=== PATIENT | female | born 1950 | race Caucasian/White ===

== ENCOUNTER 2017-04-09 07:44 | Day surgery (SDC) | payer MEDICARE, OTHER ==
[~2017-04-09] VITALS: Ht 172.7 cm; Wt 78.0 kg
[~2017-04-09 07:44] MED LIST: 0.9% Sodium Chloride 1,000 ML IV SCH; NO MEDS; Sodium Chloride LOK Flush 10 mL Syringe IV PRN; fentaNYL-PF 50 mCg/mL 2 mL Inj IVPUSH PRN
[2017-04-09 08:15] VITALS: BP 111/73; PULSE 63; RESP 16; O2SAT 99
[2017-04-09 09:31] VITALS: BP 92/56; PULSE 48; RESP 16; O2SAT 96
--- NOTE | 2017-04-09 09:34 | PCM.ENDCOL ---
Colonoscopy Date of Service: April 09, 2017 Physician Juan José Villarreal MD Pre Procedure Diagnosis: Screening Post Procedure Dx & Findings: Polyp Diverticula hemorrhoids Procedure Colonoscopy PROCEDURE IN DETAIL: Prep adequate Withdrawal time 10 minutes After unremarkable rectal examination the Olympus video colonoscope was inserted patient's anal canal and was advanced to cecum. Landmarks were identified including the ileocecal valve and appendiceal orifice. Scope was withdrawn systematically. Visualized colonic mucosa showed healthy shiny mucosa with normal healthy-appearing vasculature. In the cecum, there was a 2 mm polyp which was removed completely using cold snare. Starting in the distal descending colon, multiple medium-size diverticula noted into the distal sigmoid colon. In the rectum retroflexion was done which showed hemorrhoids. Anal canal was inspected carefully on the way out and hemorrhoids noted. Impression Polyp 1 status post complete removal Diverticula Hemorrhoids Recommendation Repeat colonoscopy 5 years Diverticular diet Presedation Assessment Risks and Benefits Informed consent was obtained from the patient after all risks and benefits including but not limited to drug reaction, infection, pain, bleeding, perforation, as well as alternatives were discussed. Patient monitoring Continuous pulse oximetry, cardiac monitoring, blood pressure monitoring, IV access, and oxygen at 2L per nasal cannula. Periprocedural Fentanyl: Fentanyl 125mcg Incrementally Midazolam: Midazolam 6mg Incrementally Complications There were no periprocedural complications identified. Post Procedure Plan Post Procedure Recommendations 1. Restrict activities today. 2. Resume normal activities in the morning. 3. Resume medications. 4. Patient informed of normal post procedure side effects as bloating, drowsiness, blood streaking in the stool. 5. average risk CRCS. If colon polyps come back as: -Hyperplastic- can repeat colonoscopy in 10 years -Tubular adenoma- repeat colonoscopy in 5 years -Tubulovillous/villous adenoma- repeat colonoscopy in 3 years -If any dysplasia- return to clinic as soon as possible 6. Please don't hesitate to call me with any questions. Juan José Villarreal MD April 09, 2017 09:34
[2017-04-09 09:41] VITALS: BP 96/54; PULSE 47; RESP 14; O2SAT 96
[2017-04-09 09:51] VITALS: BP 86/57; PULSE 40; RESP 16; O2SAT 100
[2017-04-09 09:57] VITALS: BP 93/65; PULSE 43; RESP 16; O2SAT 100
--- NOTE | 2017-04-10 10:42 | PATH ---
SURGICAL PATHOLOGY Attending Physician:Juan José Villarreal M.D. CASE STATUS: Signed Out PATIENT NAME: VIVIANA CASTILLO PID: [id number] : 1950 DATE COLLECTED:04/09/2017 17:46 SPECIMEN: Colon, Biopsy CLINICAL HISTORY: 1. CECAL POLYP FINAL DIAGNOSIS: 1.CECAL POLYP: TUBULAR ADENOMA. ICD10 D12.0 GROSS DESCRIPTION: The specimen is received in one formalin filled container labeled with the patient's name, sublabeled "cecal polyp" and consists of 3 portions of tissue which aggregate to 0.2 x 0.2 x 0.2 CM. The specimen is entirely submitted in one cassette. 04/09/2017 [facility] MICRO DESCRIPTION: See diagnosis. ICD-9 CODES: CPT CODES: 1: 00455 Electronically Signed Out Glory Berg MD [facility] Pathology [facility] [address], [place] [address] Technical component performed at [facility], [address] [place] [address] [address], [address]
== END 2017-04-09 23:59 | disposition home or self-care (01) ==
LOC: END 07:44
PROVIDERS: ATTEND Internal Medicine
DX: Z12.11 Encounter for screening for malignant neoplasm of colon (principal); D12.0 Benign neoplasm of cecum; K57.30 Diverticulosis of large intestine without perforation or abscess without bleeding; K64.8 Other hemorrhoids; E55.9 Vitamin D deficiency, unspecified; E78.2 Mixed hyperlipidemia; E04.1 Nontoxic single thyroid nodule
CPT/HCPCS: 45385; 88305; 99153; G0500; J7030